=== PATIENT | female | born 1960 | race Caucasian/White ===

== ENCOUNTER 2022-01-06 15:41 | Emergency (ER) | payer MEDICAID ==
[~2022-01-06] VITALS: Ht 162.6 cm; Wt 81.0 kg
[2022-01-06 16:23] LABS: BASOPHILS % 0.5 % (0.0-2.0); EOSINOPHILS % 0.7 % (0.0-5.0); HEMATOCRIT. 39.4 % (36.0-48.0); HEMOGLOBIN. 12.9 g/dL (12.0-16.0); LYMPHOCYTES % 27.3 % (20.0-50.0); MEAN CORPUSCULAR HEMOGLOBIN 31.4 pg (28.0-32.0); MEAN CORPUSCULAR VOLUME 95.6 fL (81.0-99.0); MEAN PLATELET VOLUME 8.1 fl (7.4-10.4); MONOCYTES % 8.9 % (2.0-8.0); NEUTROPHILS % 62.6 % (40.0-76.0); PLATELET 258 x1000/uL (130-400); RED BLOOD CELL COUNT 4.12 mill/uL (4.2-5.4); RED CELL DISTRIBUTION WIDTH 13.5 % (11.6-14.6)
[2022-01-06 16:31] LABS: CHLORIDE 101 mEq/L (98-107)
[2022-01-06] MEDS ORDERED: KETOROLAC 30MG/ML VIAL IV STA (18:01)
[2022-01-06] MEDS ORDERED: CEFAZOLIN 1000MG PREMIX 50 ML IV ONE (18:15)
[2022-01-06] MEDS ORDERED: SODIUM CHLORIDE 0.9% 1,000 ML IV ONE (18:15)
[2022-01-06] MEDS ORDERED: CEFAZOLIN 1000MG PREMIX 50 ML IV NR (18:45)
[2022-01-06 18:53] VITALS: BP 140/82
[2022-01-06] MEDS ORDERED: TRAM50TA3 MT (19:37)
[2022-01-06] MEDS ORDERED: IBUP-2030 MT (19:37)
[2022-01-06] MEDS ORDERED: CHLO473M2 MT (19:37)
[2022-01-06] MEDS ORDERED: AMOX-424 MT (19:37)
== END 2022-01-06 20:41 | disposition home or self-care (01) ==
LOC: ER 15:41
DX: K04.7 Periapical abscess without sinus (principal); I10 Essential (primary) hypertension; E78.00 Pure hypercholesterolemia, unspecified
CPT/HCPCS: 36415; 80053; 83605; 85025; 96365; 96375; 99284; J0690; J1885; J7030